=== PATIENT | male | born 1955 | race Asian ===

== ENCOUNTER 2017-06-09 16:29 | Emergency (ER) | payer OTHER ==
[~2017-06-09 16:29] MED LIST: ADVA500A INH; LORT5TAB PO; LOTREL PO; OXYC-360 PO; PIRB14I INH; SIMV20 PO
[2017-06-09] MEDS ORDERED: IOHEXOL 350 MG/ML 10 ML VIAL (for RAD DIAG) IVCONTRAST ONE (16:30)
[2017-06-09 16:33] VITALS: BP 140/86; PULSE 73; RESP 16; TEMP 98.4; O2SAT 98
[2017-06-09 17:07] VITALS: O2SAT 99
[2017-06-09 17:27] LABS: AUTOMATED NEUTROPHIL # 3.4 TH/MM3 (1.8-7.7); BASOPHIL % 0.5 % (0.0-2.0); EOSINOPHIL # 0.2 TH/MM3 (0-0.4); EOSINOPHIL % 3.4 % (0.0-4.0); HEMATOCRIT 37.1 % (39.0-51.0); HEMOGLOBIN 12.3 GM/DL (13.0-17.0); LYMPH % 28.9 % (9.0-44.0); LYMPHOCYTE # 1.8 TH/MM3 (1.0-4.8); MEAN CELL VOLUME 85.5 FL (80.0-100.0); MEAN CORPUSCULAR HEMOGLOBIN 28.4 PG (27.0-34.0); MEAN CORPUSCULAR HGB CONC 33.2 % (32.0-36.0); MEAN PLATELET VOLUME 7.4 FL (7.0-11.0); MONO % 13.6 % (0.0-8.0); MONOCYTE # 0.9 TH/MM3 (0-0.9); NEUT % 53.6 % (16.0-70.0); PLATELET COUNT 295 TH/MM3 (150-450); RED BLOOD COUNT 4.34 MIL/MM3 (4.50-5.90); RED CELL DISTRIBUTION WIDTH 12.9 % (11.6-17.2); WHITE BLOOD COUNT 6.4 TH/MM3 (4.0-11.0)
[2017-06-09 17:36] LABS: BICARBONATE 27.9 MEQ/L (21.0-32.0); CALCIUM 8.3 MG/DL (8.5-10.1); CREATININE 1.14 MG/DL (0.60-1.30)
--- NOTE | 2017-06-09 17:44 | PD ---
HPI Chief Complaint: Facial Pain or Swelling Time Seen by Provider: 16:35 Travel History International Travel<30 days: No Contact w/Intl Traveler<30days: No Traveled to known affect area: No History of Present Illness HPI This is a 61-year-old male with no significant past medical history other than reactive airway disease, presents today with complaints of left-sided facial and submandibular swelling and pain. Patient states he has been having URI symptoms for the last few days. He reports that on his way home from work today , he started experience in pain and swelling of his left lateral jaw and submandibular area. He reports difficulty opening his mouth. There is no reported fevers, chills. There are no other complaints at time of examination. PFSH Past Medical History Asthma: Yes (ALERGIC ASTHMA) Blood Disorders: No Cancer: No Cardiovascular Problems: Yes Chemotherapy: No Diabetes: No Gastrointestinal Disorders: Yes Glaucoma: No Genitourinary: No Hepatitis: No Hiatal Hernia: No Hypertension: Yes Immune Disorder: No Musculoskeletal: No Neurologic: No Psychiatric: No Respiratory: Yes (ASTHMA SEASONALLY) Radiation Therapy: No Thyroid Disease: No Tetanus Vaccination: < 5 Years Influenza Vaccination: No Past Surgical History AICD: No Genitourinary Surgery: Yes (INGUINAL HERNIA RIGHT) Joint Replacement: No Oral Surgery: Yes (WISDOM TEETH) Pacemaker: No Other Surgery: Yes Social History Alcohol Use: No Tobacco Use: No Substance Use: No Allergies-Medications (Allergen,Severity, Reaction): Coded Allergies: bee venom protein (honey bee) (Unverified Allergy, Severe, Anaphylaxis, ) Reported Meds & Prescriptions Reported Meds & Active Scripts Active Cleocin (Clindamycin HCl) 150 Mg Cap 450 Mg PO TID 10 Days Reported [Lotrel] 10-20 Mg PO BID Review of Systems Except as stated in HPI: all other systems reviewed are Neg General / Constitutional: No: Fever, Chills HENT: Positive: Other (Swelling and pain to his left cheek and submandibular area), No: Headaches, Sore Throat, Neck Pain Cardiovascular: No: Chest Pain or Discomfort, Palpitations Respiratory: No: Shortness of Breath, Other (No stridor) Physical Exam Narrative GENERAL: Well-nourished, well-developed patient, in no acute respiratory distress. SKIN: Focused skin assessment warm/dry. HEAD: Normocephalic/atraumatic. ENT: Mucosa pink and moist. No erythema or exudates. No uvular edema. No uvular , palatal deviation. Airway patent. Nasal turbinates appear normal without nasal blood, purulent drainage or septal hematoma. Patient has tenderness and swelling to his left lateral mandible area. There is also tenderness and swelling to his left submandibular area. Palpable lymph nodes. Trachea midline. No stridor. NEUROLOGICAL: Awake and alert. Cranial nerves II through XII intact. Motor grossly within normal limits. Five out of 5 muscle strength in all muscle groups. Normal speech. Data Data Last Documented VS Vital Signs Date Time Temp Pulse Resp B/P (MAP) Pulse Ox O2 Delivery O2 Flow Rate FiO2 06/09/17 18:09 66 15 124/72 (89) 100 Room Air 06/09/17 16:33 98.4 Orders Orders Complete Blood Count With Diff (06/09/17 16:35) Basic Metabolic Panel (Bmp) (06/09/17 16:35) Iv Access Insert/Monitor (06/09/17 16:35) Ecg Monitoring (06/09/17 16:35) Oximetry (06/09/17 16:35) Ct Soft Tiss Neck W Iv Cont (06/09/17 ) Iohexol 350 Inj (Omnipaque 350 Inj) (06/09/17 16:30) Clindamycin (Cleocin) (06/09/17 19:00) Labs Laboratory Tests Test 06/09/17 16:47 White Blood Count 6.4 TH/MM3 Red Blood Count 4.34 MIL/MM3 Hemoglobin 12.3 GM/DL Hematocrit 37.1 % Mean Corpuscular Volume 85.5 FL Mean Corpuscular Hemoglobin 28.4 PG Mean Corpuscular Hemoglobin Concent 33.2 % Red Cell Distribution Width 12.9 % Platelet Count 295 TH/MM3 Mean Platelet Volume 7.4 FL Neutrophils (%) (Auto) 53.6 % Lymphocytes (%) (Auto) 28.9 % Monocytes (%) (Auto) 13.6 % Eosinophils (%) (Auto) 3.4 % Basophils (%) (Auto) 0.5 % Neutrophils # (Auto) 3.4 TH/MM3 Lymphocytes # (Auto) 1.8 TH/MM3 Monocytes # (Auto) 0.9 TH/MM3 Eosinophils # (Auto) 0.2 TH/MM3 Basophils # (Auto) 0.0 TH/MM3 CBC Comment DIFF FINAL Differential Comment Blood Urea Nitrogen 18 MG/DL Creatinine 1.14 MG/DL Random Glucose 81 MG/DL Calcium Level 8.3 MG/DL Sodium Level 138 MEQ/L Potassium Level 3.9 MEQ/L Chloride Level 104 MEQ/L Carbon Dioxide Level 27.9 MEQ/L Anion Gap 6 MEQ/L Estimat Glomerular Filtration Rate 66 ML/MIN MDM Medical Decision Making Medical Screen Exam Complete: Yes Emergency Medical Condition: Yes Differential Diagnosis Uvular abscess versus submandibular abscess versus Fausto's angina Narrative Course 61-year-old male presents today with complaint of left jaw and submandibular pain and swelling. Patient has a normal white blood cell count. CT scan shows cellulitis as well as nodularity and a 14 mm mass. This could be a lymph node or it could be a neoplastic finding. The patient has been informed of the findings. Will start him on clindamycin 450 mg 3 times daily 10 days. He will follow-up with ENT for further evaluation and possible MRI if the swelling continues. Patient is instructed to return if he develops any stridor, inability to swallow, or any other reason that concerning. Diagnosis Primary Impression: Left sub-mandibular cellulitis Additional Impression: Questionable 14 mm submandibular mass Additional Instructions: Follow-up with ENT. Return if increased pain, swelling, difficulty swallowing, difficulty breathing. He will need ENT follow-up for possible MRI if the swelling does not resolve. Med/Other Pt SpecificInfo: Prescription(s) given Scripts Clindamycin (Cleocin) 150 Mg Cap 450 MG PO TID for Infection for 10 Days, CAP 0 Refills Prov: Joshua Banks MD 06/09/17 Disposition: DISCHARGE HOME Condition: Stable Joshua Banks MD Jun 09, 2017 17:44
[2017-06-09 18:09] VITALS: BP 124/72; PULSE 66; RESP 15; O2SAT 100
--- NOTE | 2017-06-09 18:40 | RADRPT ---
EXAM DATE/TIME: 06/09/2017 17:50 [facility] COMPARISON: No previous studies available for comparison. INDICATIONS : Left sided neck swelling. IV CONTRAST: 50 cc Omnipaque 350 (iohexol) IV RADIATION DOSE: 17.29 CTDIvol (mGy) MEDICAL HISTORY : Hypertension. SURGICAL HISTORY : Inguinal hernia sx. ENCOUNTER: Initial ACUITY: 2 days PAIN SCALE: 8/10 LOCATION: Left neck TECHNIQUE: Volumetric scanning of the neck was performed. Using automated exposure control and adjustment of th e mA and/or kV according to patient size, radiation dose was kept as low as reasonably achievable to obtain optimal diagnostic quality images. DICOM format image data is available electronically for r eview and comparison. FINDINGS: There is mild edema present within the subcutaneous tissues of the left anterolateral neck. There is no discrete suspicious collection identified. The parotid glands appear symmetric and normal. The submandibular salivary glands appear intact. Ther e is a structure on the left which appears isodense to the submandibular glands and potentially zhen guous with the left submandibular gland anteriorly and inferiorly alongside the mylohyoid muscle and deep to the platysma muscle which has a pattern of vascularity also very similar to the submandibular gland. The appearance may reflect a bilobed gland. An alternative possibility is that the adjacent s mall nodular projection is a mass or lymph node. The area in question measures about 14 mm in size. Small normal sized lymph nodes are present elsewhere. The visualized brain and orbits no facial structures are otherwise unremarkable. The upper aerodigestive tract is symmetric and unremarkable. The supraclavicular regions, upper mediastinum and lung apices are clear. The bony elements are benign. CONCLUSION: Left neck cellulitis. 14 mm mass contiguous with the anterior inferior aspect of the left submandibular gland. Differential considerations would include a bilobed configuration of the gland, a small submandibular gland neopl asm or adjacent neoplasm or shay enlargement. Further evaluation with pre-and postcontrast soft tiss ue MRI of the neck would be suggested on elective basis prior to consideration of biopsy or other int ervention. Saad Swift MD on June 09, 2017 at 18:25 Board Certified Radiologist. This report was verified electronically.
[2017-06-09] MEDS ORDERED: CLIN150 PO (18:51)
[2017-06-09] MEDS ORDERED: CLINDAMYCIN 150 MG CAP PO SCH (19:00)
== END 2017-06-09 19:09 | disposition home or self-care (01) ==
LOC: NEPE 16:29
DX: K12.2 Cellulitis and abscess of mouth (principal); J45.909 Unspecified asthma, uncomplicated; I10 Essential (primary) hypertension
CPT/HCPCS: 70491; 80048; 85025; 99284; Q9967